=== PATIENT | female | born 1975 | race Two or more races ===

== ENCOUNTER 2016-11-29 18:17 | Emergency (ER) | payer SELFPAY ==
[2016-11-29 18:38] VITALS: BP 194/88
[2016-11-29] MEDS ORDERED: PRED20TA PO (18:58)
[2016-11-29] MEDS ORDERED: CEPH500T PO (18:58)
[2016-11-29] MEDS ORDERED: AMLO5TAB4 PO (18:58)
--- NOTE | 2016-11-29 18:58 | PHYS DOC ---
Past Medical History Past Medical History: Hypertension Past Surgical History: No Surgical History Alcohol Use: None Drug Use: None Adult General Chief Complaint Chief Complaint: INSECT BITE HPI HPI Patient is a 41 year old female presents to the emergency department with family member who is interpreting as patient is Estonian-speaking only. Patient states that she was stung by some type of an insect yesterday on her left second finger. She has swelling to the finger and into the hand. Patient states she has increased pain to the finger as well as decreased range of motion. She denies any nausea vomiting, denies any headache shortness of air difficulty breathing or chest pain and discomfort. Patient also has elevated blood pressure here the emergency department. Patient did provide information that she was on blood pressure medicine in the past however she stopped taking it because she started feeling better. Review of Systems Review of Systems Constitutional: Denies fever or chills [] Eyes: Denies change in visual acuity, redness, or eye pain [] HENT: Denies nasal congestion or sore throat [] Respiratory: Denies cough or shortness of breath [] Cardiovascular: No additional information not addressed in HPI [] GI: Denies abdominal pain, nausea, vomiting, bloody stools or diarrhea [] : Denies dysuria or hematuria [] Musculoskeletal: Denies back pain or joint pain [] Integument: Denies rash or skin lesions. Sting to the left second finger with swelling to the hand Neurologic: Denies headache, focal weakness or sensory changes [] Endocrine: Denies polyuria or polydipsia [] Physical Exam Physical Exam Constitutional: Well developed, well nourished, no acute distress, non-toxic appearance. [] HENT: Normocephalic, atraumatic, bilateral external ears normal, oropharynx moist, no oral exudates, nose normal. [] Eyes: PERRLA, EOMI, conjunctiva normal, no discharge. [] Neck: Normal range of motion, no tenderness, supple, no stridor. [] Cardiovascular:Heart rate regular rhythm, no murmur [] Lungs & Thorax: Bilateral breath sounds clear to auscultation [] Skin: Warm, dry, no erythema, no rash. Redness and swelling to the second left finger and into the hand area decreased range of motion to the second finger. Slight redness noted. No drainage or discharge noted. Extremities: No tenderness, no cyanosis, no clubbing, ROM intact, no edema. [] Neurologic: Alert and oriented X 3, normal motor function, normal sensory function, no focal deficits noted. [] Psychologic: Affect normal, judgement normal, mood normal. [] Current Patient Data Vital Signs Vital Signs Date Time Temp Pulse Resp B/P (MAP) Pulse Ox O2 Delivery O2 Flow Rate FiO2 11/29/16 18:38 97.7 76 18 100 Room Air 97.7 EKG EKG [] Radiology/Procedures Radiology/Procedures [] Course & Med Decision Making Course & Med Decision Making Pertinent Labs and Imaging studies reviewed. (See chart for details) Patient was unsure when her last tetanus immunization occurred she'll be updated here in the emergency department. She'll be placed on Norvasc for her blood pressure with recommendations to follow-up with a primary care physician for further evaluation. She'll be placed on Keflex, prednisone, with recommendations to take Benadryl and Pepcid [id number]. Recommended ice packs on 20 minutes off 20 minutes several times a day elevation as much as possible. Also recommended following up with primary care physician next 3-5 days. Signs and symptoms to return back to emergency department as been provided. All questions and concerns been answered at patient's bedside. Patient agrees with discharge instructions, treatment regimens and follow-up recommendations. All discharge information was provided through the spanish medical interpreter at the bedside. [] Dragon Disclaimer Dragon Disclaimer This electronic medical record was generated, in whole or in part, using a voice recognition dictation system. Departure Departure Impression: Primary Impression: Bee sting Additional Impressions: Cellulitis Hypertension Disposition: 01 HOME, SELF-CARE Condition: STABLE Referrals: NON,STAFF (PCP) Patient Instructions: Bee, Wasp, or Hornet Sting, Cellulitis, Hypertension, VIS , Tetanus, Diphtheria (Td); Tetanus, Diphtheria, Pertussis (Tdap) - CDC Additional Instructions: Activity as tolerated. You may obtain Pepcid frsh-bud-xjkuzar and take one pill daily for the next 7 days. Benadryl 25 mg by mouth every 6 hours as needed for itching and irritation. This medication will cause drowsiness do not take any be alert and oriented. Medication as prescribed. Ice packs to the area on 20 minutes off 20 minutes several times a day. Follow-up with a primary care physician in regards to your blood pressure and in regards to the cellulitis in her hand in the next 3-5 days. Return back to emergency prior signs symptoms of become worse. Scripts Prednisone (PREDNISONE) 20 Mg Tablet 40 MG PO DAILY for 7 Days, #14 TAB Prov: BERNICE STEVENSON APRN 11/29/16 Cephalexin (CEPHALEXIN) 500 Mg Tablet 1 TAB PO BID, #20 TAB Prov: BERNICE STEVENSON APRN 11/29/16 Amlodipine Besylate (NORVASC) 5 Mg Tablet 1 TAB PO DAILY, #30 TAB 0 Refills Prov: BERNICE STEVENSON APRN 11/29/16 Problem Qualifiers Primary Impression: Bee sting Encounter type: initial encounter Injury intent: undetermined intent Qualified Codes: T63.444A - Toxic effect of venom of bees, undetermined, initial encounter Additional Impressions: Cellulitis Site of cellulitis: unspecified site Qualified Codes: L03.90 - Cellulitis, unspecified Hypertension Hypertension type: unspecified Qualified Codes: I10 - Essential (primary) hypertension BERNICE STEVENSON APRN Nov 29, 2016 18:58
[2016-11-29] MEDS ORDERED: DIPHTH,PERTUSS(ACELL),TET TOX 0.5 ML DISP.SYRIN. VAX IM ONE (19:00)
== END 2016-11-29 19:17 | disposition home or self-care (01) ==
LOC: ER 18:17
DX: T63.441A Toxic effect of venom of bees, accidental (unintentional), initial encounter (principal); L03.012 Cellulitis of left finger; Y92.89 Other specified places as the place of occurrence of the external cause; I10 Essential (primary) hypertension
CPT/HCPCS: 90471; 90715; 99283-25

== ENCOUNTER 2018-07-18 23:45 | Emergency (ER) | payer SELFPAY ==
[~2018-07-18] VITALS: Ht 165.1 cm; Wt 74.4 kg
[~2018-07-18 23:45] MED LIST: AMLO5TAB4 PO; CEPH500T PO; PRED20TA PO
[2018-07-19 00:01] VITALS: BP 174/76
--- NOTE | 2018-07-19 01:12 | PHYS DOC ---
Past Medical History Past Medical History: Hypertension Past Surgical History: No Surgical History Alcohol Use: None Drug Use: None Adult General Chief Complaint Chief Complaint: SKIN RASH/ABSCESS HPI HPI Patient is a 43 year old F who presents for a rash. She states that it has been present for a few days and comes and goes. She states it has been on her arms, legs, and around the eyes. She denies and fever or chills. She states that she recently started using a new laundry detergent prior to the rash starting. Current Medications Current Medications Current Medications Medications (Trade) Dose Ordered Sig/Candice Start Time Stop Time Status Last Admin Dose Admin Diphenhydramine HCl (Benadryl) 50 mg 1X ONCE 07/19/18 01:30 07/19/18 01:31 DC 07/19/18 01:30 50 MG Allergies Allergies Allergies Coded Allergies Type Severity Reaction Last Updated Verified No Known Drug Allergies 11/29/16 No Physical Exam Physical Exam Constitutional: Well developed, well nourished, no acute distress, non-toxic appearance. [] HENT: Normocephalic, atraumatic, bilateral external ears normal, oropharynx moist and clear, no oral exudates, nose normal. [] Eyes: PERRLA, EOMI, conjunctiva normal, no discharge. [] Neck: Normal range of motion, no tenderness, supple, no stridor. [] Cardiovascular:Heart rate regular rhythm, no murmur [] Lungs & Thorax: Bilateral breath sounds clear to auscultation [] Abdomen: Bowel sounds normal, soft, no tenderness, no masses, no pulsatile masses. [] Skin: Possible small erythematous lesion on the anterior sosa, no facial swelling. [] Back: No tenderness, no CVA tenderness. [] Extremities: No tenderness, no cyanosis, no clubbing, ROM intact, no edema. [] Neurologic: Alert and oriented X 3, normal motor function, normal sensory function, no focal deficits noted. [] Psychologic: Affect normal, judgement normal, mood normal. [] Current Patient Data Vital Signs Vital Signs Date Time Temp Pulse Resp B/P (MAP) Pulse Ox O2 Delivery O2 Flow Rate FiO2 07/19/18 00:01 97.9 74 16 174/76 (108) 99 Room Air 97.9 EKG EKG [] Radiology/Procedures Radiology/Procedures [] Course & Med Decision Making Course & Med Decision Making Pertinent Labs and Imaging studies reviewed. (See chart for details) []Could be mild urticaria try Benadryl return precautions discussed avoid triggers Leon Disclaimer Leon Disclaimer This electronic medical record was generated, in whole or in part, using a voice recognition dictation system. Departure Departure Impression: Primary Impression: Urticaria Disposition: HOME, SELF-CARE Condition: STABLE Referrals: NO PCP (PCP) Scripts Diphenhydramine Hcl (BENADRYL) 25 Mg Capsule 2 CAP PO TID PRN for ITCHING, #30 CAP 0 Refills Prov: CAROLYN JACOBS MD 07/19/18 CAROLYN JACOBS MD July 19, 2018 01:12
[2018-07-19] MEDS ORDERED: DIPH25CA58 PO (01:13)
[2018-07-19] MEDS ORDERED: diphenhydrAMINE HCL 25 MG CAPSULE PO ONE (01:30)
== END 2018-07-19 01:35 | disposition home or self-care (01) ==
LOC: ER 23:45
DX: L50.9 Urticaria, unspecified (principal); I10 Essential (primary) hypertension
CPT/HCPCS: 99283; Q0163

== ENCOUNTER 2021-01-16 21:22 | Emergency (ER) | payer SELFPAY ==
[~2021-01-16] VITALS: Ht 157.5 cm; Wt 85.0 kg
[~2021-01-16 21:22] MED LIST changes: +DIPH25CA58 PO
[2021-01-16] MEDS ORDERED: ACETAMINOPHEN 325 MG TABLET. PO ONE (23:30)
[2021-01-16] MEDS ORDERED: IBUPROFEN 200 MG TABLET. PO ONE (23:30)
[2021-01-16 23:36] LABS: BILIRUBIN,URINE NEGATIVE (NEG); CLARITY,URINE CLOUDY; COLOR,URINE YELLOW; NITRITE,URINE NEGATIVE (NEG); PH,URINE 7.5 (<5.0-8.0); PROTEIN,URINE NEGATIVE (NEG-TRACE); UROBILINOGEN,URINE 0.2 mg/dL (0.2 mg/dL)
[2021-01-16] MEDS ORDERED: ONDANSETRON ODT 4 MG TAB.RAPDIS. PO ONE (23:45)
[2021-01-16 23:53] LABS: BACTERIA,URINE MODERATE /HPF (0-FEW); RBC,URINE 0 /HPF (0-2); WBC,URINE 20-40 /HPF (0-4)
--- NOTE | 2021-01-17 00:23 | RAD ---
XR FOOT_LEFT 3 VIEWS, XR EXAM OF ANKLE_LEFT 3V, XR LT TIBIA + FIBULA Clinical Indication: Reason: Fall, pain / Spl. Instructions: / History: Comparison: None. Findings: There is no knee joint effusion. The patella is in anatomic position. Question medial compartment grecia rowing of the knee. There is no acute fracture of the tibia or fibula. No soft tissue swelling of the calf is identified. The mineralization is normal. The ankle mortise is intact. There is no soft tissue swelling of the ankle. There is no acute fractur e. No ankle joint effusion is seen. There is no acute fracture of the foot. No soft tissue swelling is identified. The joint spaces are m aintained. The medial sesamoid is diminutive in size. IMPRESSION: No acute fracture. Electronically signed by: Jonnie Richardson MD (01/17/2021 12:21 AM) DELANO
[2021-01-17 00:54] LABS: U PREG PATIENT NEGATIVE (NEG)
[2021-01-17] MEDS ORDERED: HYDR-2145 PO (00:59)
[2021-01-17 01:00] VITALS: BP 200/116
--- NOTE | 2021-01-17 01:00 | PHYS DOC ---
Past Medical History Past Medical History: Hypertension Past Surgical History: No Surgical History Smoking Status: Never Smoker Alcohol Use: None Drug Use: None General Adult EDM: Chief Complaint: MULTIPLE COMPLAINTS HPI: HPI: Patient is a 45-year-old female who presents to the emergency department with chief complaint left lower leg pain after a trip and fall 5 days ago, patient states she has been rubbing a liniment on her leg without relief of pain. Patient reports taken to htno-deu-soddbjp ibuprofen today without relief and a 10 out of 10 pain. Patient denies numbness or tingling to her lower extremities, denies other physical complaints or physical concerns. Review of Systems: Review of Systems: 14 body systems of review of systems have been reviewed. See HPI for pertinent positives and negative responses, otherwise all other systems are negative, nonpertinent or noncontributory. Constitutional: Negative except as outlined in HPI above. Skin: Negative except as outlined in HPI above. Eyes: Negative except as outlined in HPI above. HENT: Negative except as outlined in HPI above. Respiratory: Negative except as outlined in HPI above. Cardiovascular: Negative except as outlined in HPI above. GI: Negative except as outlined in HPI above. : Negative except as outlined in HPI above. Musculoskeletal: Negative except as outlined in HPI above. Integument: Negative except as outlined in HPI above. Neurologic: Negative except as outlined in HPI above. Endocrine: Negative except as outlined in HPI above. Lymphatic: Negative except as outlined in HPI above. Psychiatric: Negative except as outlined in HPI above. Heart Score: C/O Chest Pain: No Risk Factors: Risk Factors: DM, Current or recent (<one month) smoker, HTN, HLP, family history of CAD, obesity. Risk Scores: Score 0 - 3: 2.5% MACE over next 6 weeks - Discharge Home Score 4 - 6: 20.3% MACE over next 6 weeks - Admit for Clinical Observation Score 7 - 10: 72.7% MACE over next 6 weeks - Early Invasive Strategies Current Medications: Current Medications Medications (Trade) Dose Ordered Sig/Candice Start Time Stop Time Status Last Admin Dose Admin Acetaminophen (Tylenol) 650 mg 1X ONCE 01/16/21 23:30 01/16/21 23:31 DC 01/16/21 23:29 650 MG Ibuprofen (Motrin) 600 mg 1X ONCE 01/16/21 23:30 01/16/21 23:31 DC 01/16/21 23:29 600 MG Ondansetron HCl (Zofran Odt) 4 mg 1X ONCE 01/16/21 23:45 01/16/21 23:46 DC 01/17/21 00:36 4 MG Allergies: Allergies: Allergies Coded Allergies Type Severity Reaction Last Updated Verified No Known Drug Allergies 11/29/16 No Physical Exam: PE: Constitutional: Well developed, well nourished, no acute distress, non-toxic appearance. 45-year-old female in no apparent distress. Patient's complaint level of pain exceeds patient's physical appearance and examination HENT: Normocephalic, atraumatic. Eyes: Conjunctiva normal, no discharge. Neck: Normal range of motion, no stridor. Cardiovascular: No cyanosis appreciated, distal cap refill less than 2 seconds. Lungs & Thorax: Patient is in no respiratory distress, no audible adventitious lung sounds appreciated. Abdomen: Nontender, no abnormalities noted. Skin: Warm, dry, no erythema, no rash. Back: No tenderness, no deformities. Extremities: No tenderness, no cyanosis, no clubbing, ROM intact, no edema. Ecchymosis to the left anterior lower leg just below the knee to just above ankle area, ecchymosis area to medial ankle and foot, no edema appreciated, 2+ d orsalis pedis/posterior tibial pulse, distal cap refill less than 2 seconds, limited passive range of motion related to pain. Skin is intact. Ecchymosis of various stages of healing color from yellow to yellowish-green to dark reddish- purple. Neurologic: Alert and oriented X 3, normal motor function, normal sensory function, no focal deficits noted. Psychologic: Affect normal, judgement normal, mood normal. Current Patient Data: Labs: Laboratory Tests Test 01/16/21 23:30 Urine Collection Type Unknown Urine Color Yellow Urine Clarity Cloudy Urine pH 7.5 (<5.0-8.0) Urine Specific Fowler <=1.005 (1.000-1.030) Urine Protein Negative mg/dL (NEG-TRACE) Urine Glucose (UA) Negative mg/dL (NEG) Urine Ketones (Stick) Negative mg/dL (NEG) Urine Blood Negative (NEG) Urine Nitrite Negative (NEG) Urine Bilirubin Negative (NEG) Urine Urobilinogen Dipstick 0.2 mg/dL (0.2 mg/dL) Urine Leukocyte Esterase Large (NEG) Urine RBC 0 /HPF (0-2) Urine WBC 20-40 /HPF (0-4) Urine Squamous Epithelial Cells Many /LPF Urine Bacteria Moderate /HPF (0-FEW) Urine Mucus Slight /LPF Vital Signs: Vital Signs Date Time Temp Pulse Resp B/P (MAP) Pulse Ox O2 Delivery O2 Flow Rate FiO2 01/16/21 21:59 99.1 75 20 200/91 (127) 100 Room Air 99.1 EKG: EKG: [] Radiology/Procedures: Radiology/Procedures: PROCEDURE: TIBIA FIBULA LEFT XR FOOT_LEFT 3 VIEWS, XR EXAM OF ANKLE_LEFT 3V, XR LT TIBIA + FIBULA Clinical Indication: Reason: Fall, pain / Spl. Instructions: / History: Comparison: None. Findings: There is no knee joint effusion. The patella is in anatomic position. Question medial compartment narrowing of the knee. There is no acute fracture of the tibia or fibula. No soft tissue swelling of the calf is identified. The mineralization is normal. The ankle mortise is intact. There is no soft tissue swelling of the ankle. There is no acute fracture. No ankle joint effusion is seen. There is no acute fracture of the foot. No soft tissue swelling is identified. T he joint spaces are maintained. The medial sesamoid is diminutive in size. IMPRESSION: No acute fracture. Electronically signed by: Jonnie Richardson MD (01/17/2021 12:21 AM) [facility] Course & Med Decision Making: Course & Med Decision Making Pertinent Labs and Imaging studies reviewed. (See chart for details) 45-year-old female, vital signs reviewed, presents to the emergency department concerning left lower extremity discomfort after a fall 5 days ago. Physical examination and presentation is consistent with patient's explanation of events will order Tylenol and ibuprofen, urinalysis assay with test, x-ray tib-fib ankle and foot of the left, Zofran for nausea. Patient's urine has bacteria without hematuria, nitrates, red blood cells. Does have leukocyte Estrace. Patient denies urinary pressure or urinary burning or abdominal pains. Will defer urinary tract infection treatment at this time. Patient does however report a history of hypertension, states she does not see doctors and only goes to the emergency department for her hypertension care. Patient states she does not really care what medication she gets she does takes what ever she is given from the emergency departments. Patient's blood pressure is 200/91. Will prescribe 30 days of hydrochlorothiazide 25 mg daily. Discussed with patient strong recommendation of choosing a primary care physician, will give recommendation of area clinics and physicians to establish primary care. Patient's x-rays unremarkable, discussed with patient rice therapy, will place Edenilson wrap prior to discharge. Discussed with the patient all findings and diagnostic testing as well as the need to follow-up with their primary care provider for further evaluation and treatment or return to the ED if any new or worsening symptoms. Strict return precautions were also discussed at length, the patient voiced understanding and agreement with the discharge planning. The patient was nontoxic in appearance, in no apparent distress, and hemodynamically stable at the time of disposition. Dragon Disclaimer: Dragon Disclaimer: This electronic medical record was generated, in whole or in part, using a voice recognition dictation system. Departure Departure Impression: Primary Impression: High blood pressure Qualified Codes: I10 - Essential (primary) hypertension Additional Impression: Contusion of left lower leg Qualified Codes: S80.12XA - Contusion of left lower leg, initial encounter Disposition: HOME / SELF CARE / HOMELESS Condition: GOOD Referrals: NO PCP (PCP) Patient Instructions: Contusion, Hypertension Additional Instructions: You were seen today in the emergency department for bruising of your left lower extremity after a fall 5 days ago. X-rays of your left leg, left ankle, and left foot did not show any concerning findings of a broken bone. You do have bruising. Please use RICE therapy, this is an acronym for rest, ice, compression, elevation. An Edenilson wrap was placed to assist with compression, you may use zyki-[id number] Tylenol and/or Motrin for ongoing discomfort. You had indicated that you do not see a primary care doctor for your high blood pressure, I have attached a list of area physicians and clinics for you to follow-up with to establish primary care, it is imperative that you start seeing a doctor for your high blood pressure, I am prescribing you only 30 days supply of blood pressure medicine, please take as directed, please change to the blood pressure medication your doctor wishes for you to be on. Thank you for visiting our Emergency Department. It was a pleasure taking care of you today in the emergency department and we appreciate you trusting us with your care. If any additional problems come up don't hesitate to return to visit us. Please follow up with your primary care provider so they can plan additional care if needed and know about the problem that you had. If symptoms worsen come back to the Emergency Department. Any concerning symptoms that start such as chest pain, shortness of air, weakness or numbness on one side of the body, running high fevers or any other concerning symptoms return to the ER. Hoy lo vieron en el departamento de emergencias por un hematoma en la extremidad inferior izquierda despus de kourtney cada hace 5 robles. Las radiografas de la pierna izquierda, el tobillo higinio y el pie higinio no mostraron ningn hallazgo preocupante de fractura de hueso. Tiene moretones. Utilice la terapia RICE, bernardino es un acrnimo de descanso, hielo, compresin, elevacin. Se coloc kourtney venda Edenilson para ayudar con la compresin, puede usar Tylenol y / o Motrin de venta angelika para el malestar continuo. Reynolds indicado que no ve a un mdico de atencin primaria por mcnally presin arterial saeed, he adjuntado kourtney lista de mdicos y clnicas del crista para que pueda realizar un seguimiento para establecer la atencin primaria, es imperativo que comience a mela a un mdico por mcnally presin arterial saeed, le estoy recetando un suministro de medicamento para la presin arterial para solo 30 robles, por favor tmelo segn las indicaciones, cambie al medicamento para la presin arterial que mcnally mdico desea que tome. Mechelle por visitar nuestro Departamento de Emergencias. Fue un placer atenderlo hoy en el departamento de emergencias y le agradecemos que nos haya confiado mcnally atencin. Si surge algn problema adicional, no dude en volver a visitarnos. Peyman un seguimiento con mcnally proveedor de atencin primaria para que puedan planificar atencin adicional si es necesario y conocer el problema que tuvo. Si los sntomas empeoran, regrese al Departamento de Emergencias. Cualquier sntoma preocupante que comience, dafne dolor en el pecho, falta de aire, debilidad o entumecimiento en un lado del cuerpo, fiebre saeed o cualquier otro sntoma preocupante, regresa a la africa de emergencias. EMERGENCY DEPARTMENT GENERAL DISCHARGE INSTRUCTIONS Thank you for coming to [facility] Emergency Department (ED) today and trusting us with you care. We trust that you had a positive experience in our Emergency Department. If you wish to speak to the department management, you may call the Director at [phone]. YOUR FOLLOW UP INSTRUCTIONS ARE FOLLOWS: 1. Do you have a private Doctor? If you do not have a private doctor, please ask for a resource list of physicians or clinics that may be able to assist you with follow up care. 2. The Emergency Physicain has interpreted your x-rays. The X-Ray specialist will also review them. If there is a change in the findings, you will be notified in 48 hours when at all possible. 3. A lab test or culture has been done, your results will be reviewed and you will be notified if you need a change in treatment. ADDITIONAL INSTRUCTIONS AND INFORMATION: 1. Your care today has been supervised by a physician who is specially trained in emergency care. Many problems require more than one evaluation for a complete diagnosis and treatment. We recommend that you schedule your follow up appointment as recommended to ensure complete treatment of you illness or injury. If you are unable to obtain follow up care and continue to have a problem, or if your condition worsens, we recommend that you return to the ED. 2. We are not able to safely determine your condition over the phone nor are we able to give sound medical advice over the phone. For these safety reasons, if you call for medical advice we will ask you to come to the ED for further evaluation. 3. If you have any questions regarding these discharge instructions please call the ED at [phone]. SAFETY INFORMATION: In the interest of safety, wellness, and injury prevention; we encourage you to wear your sealbelt, if you smoke; quite smoking, and we encourage family to use a protective helmet for bicycling and other sporting events that present an increased risk for head injury. IF YOUR SYMPTOMS WORSEN OR NEW SYMPTOMS DEVELOP, OR YOU HAVE CONCERNS ABOUT YOUR CONDITION; OR IF YOUR CONDITION WORSENS WHILE YOU ARE WAITING FOR YOUR FOLLOW UP APPOINTMENT; EITHER CONTACT YOUR PRIMARY CARE DOCTOR, THE PHYSICIAN WHOSE NAME AND NUMBER YOU WERE GIVEN, OR RETURN TO THE ED IMMEDIATELY. Scripts Hydrochlorothiazide (HYDROCHLOROTHIAZIDE TABLET ) 25 Mg Tablet 25 MG PO DAILY for DIURETIC, #30 TAB 0 Refills Prov: FELICIA RAMEY APRN 01/17/21 FELICIA RAMEY APRN Jan 17, 2021 01:00
== END 2021-01-17 01:10 | disposition home or self-care (01) ==
LOC: ER 21:22
DX: S80.12XA Contusion of left lower leg, initial encounter (principal); I10 Essential (primary) hypertension; W01.0XXA Fall on same level from slipping, tripping and stumbling without subsequent striking against object, initial encounter; Y93.89 Activity, other specified; Y92.89 Other specified places as the place of occurrence of the external cause; Y99.8 Other external cause status
CPT/HCPCS: 73590; 73610; 73630; 81001; 81025; 87086; 99285-25